=== PATIENT | female | born 1985 | race Caucasian/White ===

== ENCOUNTER → 2017-08-24 16:15 | Outpatient (CLI) | payer OTHER, SELFPAY ==
[2017-08-24 17:28] LABS: Absolute Lymphocyte Count 3.09 X10^3/ul (0.83-4.51); Absolute Neutrophil Count 3.7 X10^3/uL (2.0-7.7); Basophil# 0.06 X10^3/uL; Basophil% 0.8 % (0-1); Eosinophils% 3.9 % (0-5); Hematocrit 35.1 % (37-47); Hemoglobin 11.3 g/dl (12.0-15.0); Lymphocyte # 3.09 X10^3/ul (4.0); Lymphocyte % 39.7 % (19-41); Mean Corp Hgb Conc 32.2 g/gl (32-36); Mean Corpuscular Hgb 20.9 pg (27.0-32.0); Mean Corpuscular Volume 64.9 fL (81-99); Mean Platelet Vol. 11.3 fl (6.2-12.0); Monocyte# 0.64 X10^3/uL; Monocyte% 8.2 % (0-10); Neutrophil # 3.69 X10^3/uL (2.7-7.7); Neutrophil % 47.3 % (47-70); Platelet Count 256 K/mm3 (150-450); RBC Distribution Width CV 14.8 % (11.6-14.6); RBC Distribution Width SD 34.4 fl (35.1-43.9); Red Blood Count 5.41 M/mm3 (4.2-5.4); White Blood Count 7.8 K/mm3 (4.4-11.0)
[2017-08-24 17:29] LABS: Differential Indicated SCAN CRITERIA MET; POSITIVE COUNT NO; POSITIVE DIFFERENTIAL NO; POSITIVE MORPHOLOGY YES
[2017-08-24 17:32] LABS: ALB/GLOB Ratio 1.1 RATIO (0.9-2.4); AST(SGOT) 15 U/L (15-37); Alanine Aminotransfer ALT/SGPT 16 U/L (13-56); Albumin, Serum 3.8 g/dL (3.2-5.0); Alkaline Phosphatase 53 U/L (45-117); Anion Gap 7 (5-15); BUN 12 mg/dL (7-18); Calcium,Total 8.7 mg/dL (8.5-10.1); Chloride 107 mmol/L (98-107); Creatinine, Serum 0.86 mg/dL (0.55-1.02); EST Glomerular Filtration Rate 83 mL/min (>60); Est Glom Filt Rate - Afr Amer 100 mL/min (>60); Globulin 3.5 g/dL (2.2-4.2); Glucose 78 mg/dL (74-106); Potassium 3.7 mmol/L (3.5-5.1); Protein, Total 7.3 g/dL (6.4-8.2); Sodium Level 140 mmol/L (136-145)
== END ==
PROVIDERS: Family Provider Physician Assistant; PCP Physician Assistant; Visit Provider Internal Medicine Rheumatology
DX: M06.4 Inflammatory polyarthropathy (principal); M35.1 Other overlap syndromes; K21.9 Gastro-esophageal reflux disease without esophagitis; M21.40 Flat foot [pes planus] (acquired), unspecified foot; J38.3 Other diseases of vocal cords; G43.909 Migraine, unspecified, not intractable, without status migrainosus
CPT/HCPCS: 36415; 80053; 85025

== ENCOUNTER 2017-09-04 15:44 | Emergency (ER) | payer OTHER, SELFPAY ==
[2017-09-04 15:45] VITALS: BP 132/72; PULSE 96; RESP 16; TEMP 36.9; O2SAT 99; BMI 27.7
[2017-09-04 16:32] LABS: Anion Gap 8 (5-15); BUN 11 mg/dL (7-18); BUN/Creat Ratio 11.5 RATIO (10-20); Calcium,Total 8.8 mg/dL (8.5-10.1); Chloride 106 mmol/L (98-107); Creatinine, Serum 0.96 mg/dL (0.55-1.02); EST Glomerular Filtration Rate 73 mL/min (>60); Est Glom Filt Rate - Afr Amer 88 mL/min (>60); Estimated Creatinine Clearance 68.39 ml/min; Glucose 103 mg/dL (74-106); Potassium 3.6 mmol/L (3.5-5.1); Sodium Level 140 mmol/L (136-145)
--- NOTE | 2017-09-04 16:59 | ED.VISSUMM ---
- ER Visit Summary Date of Service: 09/04/17 Chief Complaint: Abdominal pain History of Present Illness: The patient is a 31 F who presents with upper abdominal pain that began approximately 3 hours prior to arrival. Patient states the pain began suddenly. Patient states the pain is over the epigastric area. Patient states this again approximately 2 hours after eating. Patient denies any radiation of the pain. Patient describes her pain as sharp and squeezing. Patient admits to some nausea but denies any vomiting. Patient did have an episode of loose diarrhea. Patient denies any dysuria or hematuria. Patient states her last menstrual period was 2 weeks ago and was normal. Patient denies any back pain. Physical Examination: Vital signs are stable. Patient is afebrile. Patient is in no acute distress. Oral mucosa is pink and moist. Heart was regular rate and rhythm. Lungs are clear and equal bilaterally. Abdomen is soft. Bowel sounds are normal. There is tenderness of the epigastric and right upper quadrant areas. There is also some mild tenderness of the left upper and left lower quadrants. There is no rebound or guarding noted. Cranial nerves II through XII are intact. There are no focal motor or sensory deficits noted. The remaining physical exam is within normal limits. Test Results: CBC, comprehensive metabolic profile, urinalysis were within normal limits. Emergency Department Course and Treatment: Patient states her pain had resolved on reevaluation. Patient was advised that this could be related to her gallbladder, gastritis, or related to her celiac disease. Patient was instructed to eat low-fat diet. Patient was instructed to follow-up with her primary care physician in 5-7 days. Patient understood and was agreeable with the plan. All questions were answered. Disposition: Discharge home Impression: Right upper quadrant abdominal pain This note was generated with [employer] dictation software. It may contain incorrect words, spelling, and punctuation that were not noted in review of the chart prior to signing ED Disposition - Plan for ED Patient: Disposition: Home or Assisted Living Chief Complaint: Abd Pain Diagnosis: Right upper quadrant abdominal pain of unknown etiology Instructions: ED Abdominal Pain Gallstone Poss Referrals: Samir Cramer DO [Primary Care Provider] -
[2017-09-04 17:00] LABS: Absolute Lymphocyte Count 1.65 X10^3/ul (0.83-4.51); Absolute Neutrophil Count 6.5 X10^3/uL (2.0-7.7); Basophil# 0.06 X10^3/uL; Basophil% 0.7 % (0-1); Eosinophil# 0.12 X10^3/uL; Eosinophils% 1.3 % (0-5); Hematocrit 36.3 % (37-47); Hemoglobin 11.6 g/dl (12.0-15.0); Lymphocyte # 1.65 X10^3/ul (4.0); Lymphocyte % 18.5 % (19-41); Mean Corpuscular Hgb 20.6 pg (27.0-32.0); Mean Corpuscular Volume 64.6 fL (81-99); Monocyte# 0.57 X10^3/uL; Monocyte% 6.4 % (0-10); Neutrophil # 6.48 X10^3/uL (2.7-7.7); Neutrophil % 72.9 % (47-70); Platelet Count 233 K/mm3 (150-450); RBC Distribution Width CV 14.5 % (11.6-14.6); RBC Distribution Width SD 33.4 fl (35.1-43.9); Red Blood Count 5.62 M/mm3 (4.2-5.4); White Blood Count 8.9 K/mm3 (4.4-11.0)
[2017-09-04 17:13] LABS: Differential Indicated SCAN CRITERIA MET; POSITIVE COUNT NO; POSITIVE DIFFERENTIAL NO; POSITIVE MORPHOLOGY YES
[2017-09-04 17:22] LABS: Mucous, Urine 0 SEEN /hpf (<or=2+); Red Blood Cells-Urine 0 SEEN /hpf (0-5)
[2017-09-04 17:29] LABS: Pregnancy, Serum, hCG Quali. NEGATIVE Negative (0-9 Nonpreg)
[2017-09-04 17:35] LABS: Color, Urine Yellow (Yellow); Glucose, Dipstick Normal (Normal); Ketone-Dipstick Negative (Negative); Leukocyte Esterase-Dipstick 100 /ul (Negative); Nitrite-Dipstick Negative (Negative); Occult Blood-Urine Negative /ul (Negative); Protein-Dipstick Negative (Negative); Urine Bilirubin Dipstick Negative (Negative); Urine Clarity Sl. Cloudy (Clear); Urine Urobilinogen Normal (Normal)
[2017-09-04 17:36] LABS: AST(SGOT) 13 U/L (15-37); Alanine Aminotransfer ALT/SGPT 15 U/L (13-56); Albumin, Serum 4.1 g/dL (3.2-5.0); Alkaline Phosphatase 54 U/L (45-117); Bilirubin, Direct 0.16 mg/dL (0.00-0.30); Globulin 3.4 g/dL (2.2-4.2); Lipase 186 U/L (73-393); Protein, Total 7.5 g/dL (6.4-8.2)
[2017-09-04 17:43] LABS: Squamous Epithelial Cells - UA 0-5 SEEN /hpf (5-10); White Blood Cells 0-5 SEEN /hpf (0-5)
[2017-09-04 17:44] LABS: Bacteria RARE /hpf (None Seen)
[2017-09-04 18:00] VITALS: BP 114/73; PULSE 90; RESP 16; O2SAT 99
[2017-09-04 20:07] LABS: Platelet Estimate ADEQUATE (ADEQ)
[2017-09-04 20:08] LABS: Differential Comment SCANNED; Hypochromasia 1+; Microcytosis 2+; Ovalocyte 1+; Platelet Morphology LARGE; Schistocytes RARE; Tear Drop Cell RARE
[2017-09-04 20:42] VITALS: BP 118/78; PULSE 83; RESP 16; O2SAT 100
== END 2017-09-04 20:44 | disposition home or self-care (01) ==
PROVIDERS: Emergency Provider Emergency Medicine; Family Provider Preventive Medicine Occupational Medicine; PCP Preventive Medicine Occupational Medicine
DX: R10.11 Right upper quadrant pain (principal); R10.13 Epigastric pain
CPT/HCPCS: 80048; 80076; 81001; 83690; 84703; 85025; 99284; A4216

== ENCOUNTER → 2017-10-07 10:46 | Outpatient (CLI) | payer OTHER, SELFPAY ==
[2017-10-07 11:29] LABS: hCG Titer Quant., Serum < 1 mIU/mL (<9 non-preg)
== END ==
PROVIDERS: Visit Provider Obstetrics & Gynecology
DX: Z32.00 Encounter for pregnancy test, result unknown (principal)
CPT/HCPCS: 36415; 84702

== ENCOUNTER → 2017-10-12 18:01 | Outpatient (CLI) | payer OTHER, SELFPAY | PROVIDERS: Family Provider Preventive Medicine Occupational Medicine; PCP Preventive Medicine Occupational Medicine; Visit Provider Obstetrics & Gynecology | DX: R30.0 Dysuria (principal) | CPT/HCPCS: 87086; 87088 ==

== ENCOUNTER → 2017-10-22 15:47 | Outpatient (CLI) | payer OTHER, SELFPAY | PROVIDERS: Visit Provider Obstetrics & Gynecology | DX: R30.0 Dysuria (principal) | CPT/HCPCS: 87077; 87086; 87088; 87186 ==

== ENCOUNTER → 2018-02-18 16:29 | Outpatient (CLI) | payer OTHER, SELFPAY ==
[2018-02-18 17:11] LABS: Color, Urine Yellow (Yellow); Glucose, Dipstick Normal (Normal); Ketone-Dipstick Negative (Negative); Leukocyte Esterase-Dipstick 100 /ul (Negative); Nitrite-Dipstick Negative (Negative); Occult Blood-Urine Negative /ul (Negative); Protein-Dipstick Negative (Negative); Specific Gravity, Urine 1.015 (1.002-1.030); Urine Bilirubin Dipstick Negative (Negative); Urine Clarity Clear (Clear); Urine Urobilinogen Normal (Normal)
[2018-02-18 17:37] LABS: Protein, Urine (Random) 6.7 mg/dL (<11.9); Protein:Creat Ratio 95 mg/g CRE (0-200)
[2018-02-18 17:38] LABS: ALB/GLOB Ratio 1.1 RATIO (0.9-2.4); AST(SGOT) 13 U/L (15-37); Alanine Aminotransfer ALT/SGPT 17 U/L (13-56); Albumin, Serum 4.1 g/dL (3.2-5.0); Alkaline Phosphatase 54 U/L (45-117); Anion Gap 6 (5-15); BUN 12 mg/dL (7-18); BUN/Creat Ratio 12.5 RATIO (10-20); Calcium,Total 8.8 mg/dL (8.5-10.1); Chloride 103 mmol/L (98-107); Creatinine, Serum 0.96 mg/dL (0.55-1.02); EST Glomerular Filtration Rate 72 mL/min (>60); Est Glom Filt Rate - Afr Amer 88 mL/min (>60); Globulin 3.6 g/dL (2.2-4.2); Glucose 87 mg/dL (74-106); Potassium 3.6 mmol/L (3.5-5.1); Protein, Total 7.7 g/dL (6.4-8.2); Sodium Level 136 mmol/L (136-145)
[2018-02-18 17:49] LABS: Absolute Lymphocyte Count 3.06 X10^3/ul (0.83-4.51); Absolute Neutrophil Count 3.4 X10^3/uL (2.0-7.7); Basophil# 0.07 X10^3/uL; Eosinophil# 0.32 X10^3/uL; Eosinophils% 4.4 % (0-5); Hemoglobin 11.4 g/dl (12.0-15.0); Lymphocyte # 3.06 X10^3/ul (4.0); Lymphocyte % 41.7 % (19-41); Mean Corp Hgb Conc 31.7 g/gl (32-36); Mean Corpuscular Hgb 20.6 pg (27.0-32.0); Mean Corpuscular Volume 65.1 fL (81-99); Mean Platelet Vol. 11.3 fl (6.2-12.0); Monocyte# 0.51 X10^3/uL; Monocyte% 6.9 % (0-10); Neutrophil # 3.37 X10^3/uL (2.7-7.7); Neutrophil % 45.9 % (47-70); Platelet Count 270 K/mm3 (150-450); RBC Distribution Width CV 14.6 % (11.6-14.6); Red Blood Count 5.53 M/mm3 (4.2-5.4); White Blood Count 7.3 K/mm3 (4.4-11.0)
[2018-02-18 17:54] LABS: Differential Indicated SCAN CRITERIA MET; POSITIVE COUNT NO; POSITIVE DIFFERENTIAL NO; POSITIVE MORPHOLOGY YES
[2018-02-18 18:10] LABS: Anisocytosis 1+; Microcytosis 1+; Platelet Estimate ADEQUATE (ADEQ); Platelet Morphology LARGE
== END ==
PROVIDERS: Family Provider Preventive Medicine Occupational Medicine; PCP Preventive Medicine Occupational Medicine; Referring Provider Internal Medicine Rheumatology; Visit Provider Internal Medicine Rheumatology
DX: M06.4 Inflammatory polyarthropathy (principal); M35.1 Other overlap syndromes; K21.9 Gastro-esophageal reflux disease without esophagitis; M21.40 Flat foot [pes planus] (acquired), unspecified foot; J38.3 Other diseases of vocal cords; G43.909 Migraine, unspecified, not intractable, without status migrainosus
CPT/HCPCS: 36415; 80053; 81002; 82570; 84156; 85025

== ENCOUNTER → 2018-08-30 | Outpatient (CLI) | payer OTHER, SELFPAY ==
[2018-08-30 09:47] LABS: Absolute Neutrophil Count 3.1 X10^3/uL (2.0-7.7); Basophil# 0.09 X10^3/uL; Basophil% 1.6 % (0-1); Eosinophil# 0.19 X10^3/uL; Eosinophils% 3.4 % (0-5); Hematocrit 35.8 % (37-47); Hemoglobin 11.5 g/dl (12.0-15.0); Lymphocyte % 32.1 % (19-41); Mean Corp Hgb Conc 32.1 g/gl (32-36); Mean Corpuscular Hgb 20.4 pg (27.0-32.0); Mean Corpuscular Volume 63.5 fL (81-99); Mean Platelet Vol. 12.1 fl (6.2-12.0); Monocyte# 0.43 X10^3/uL; Monocyte% 7.7 % (0-10); Neutrophil # 3.09 X10^3/uL (2.7-7.7); Neutrophil % 55.2 % (47-70); Platelet Count 250 K/mm3 (150-450); RBC Distribution Width CV 15.2 % (11.6-14.6); RBC Distribution Width SD 34.3 fl (35.1-43.9); Red Blood Count 5.64 M/mm3 (4.2-5.4); White Blood Count 5.6 K/mm3 (4.4-11.0)
[2018-08-30 09:56] LABS: POSITIVE COUNT NO; POSITIVE DIFFERENTIAL NO
[2018-08-30 10:12] LABS: ALB/GLOB Ratio 1.3 RATIO (0.9-2.4); AST(SGOT) 18 U/L (15-37); Alanine Aminotransfer ALT/SGPT 20 U/L (13-56); Albumin, Serum 4.1 g/dL (3.2-5.0); Alkaline Phosphatase 41 U/L (45-117); Anion Gap 6 (5-15); BUN 15 mg/dL (7-18); Calcium,Total 8.9 mg/dL (8.5-10.1); Chloride 106 mmol/L (98-107); EST Glomerular Filtration Rate 69 mL/min (>60); Est Glom Filt Rate - Afr Amer 83 mL/min (>60); Globulin 3.2 g/dL (2.2-4.2); Glucose 101 mg/dL (74-106); Protein, Total 7.3 g/dL (6.4-8.2); Sodium Level 139 mmol/L (136-145)
== END | disposition home or self-care (01) ==
LOC: LAB 08:10
PROVIDERS: Family Provider Family Medicine; PCP Family Medicine; Referring Provider Internal Medicine Rheumatology; Visit Provider Internal Medicine Rheumatology
DX: M06.4 Inflammatory polyarthropathy (principal); M35.1 Other overlap syndromes; K21.9 Gastro-esophageal reflux disease without esophagitis; M21.40 Flat foot [pes planus] (acquired), unspecified foot; J38.3 Other diseases of vocal cords; G43.909 Migraine, unspecified, not intractable, without status migrainosus
CPT/HCPCS: 36415; 80053; 85025

== ENCOUNTER → 2019-02-21 08:08 | Outpatient (CLI) | payer OTHER, SELFPAY ==
[2019-02-21 08:59] LABS: Absolute Lymphocyte Count 2.31 X10^3/uL (0.83-4.51); Basophil# 0.06 X10^3/uL; Basophil% 0.6 % (0-1); Eosinophil# 0.23 X10^3/uL; Eosinophils% 2.5 % (0-5); Hematocrit 38.9 % (37-47); Lymphocyte # 2.31 X10^3/ul (4.0); Lymphocyte % 24.7 % (19-41); Mean Corp Hgb Conc 30.8 g/dL (32-36); Mean Corpuscular Hgb 20.8 pg (27.0-32.0); Mean Corpuscular Volume 67.5 fL (81-99); Monocyte# 0.72 X10^3/uL; Monocyte% 7.7 % (0-10); NRBC Flagged by Analyzer 0 % (0-5); Neutrophil % 64.3 % (47-70); Platelet Count 263 K/mm3 (150-450); RBC Distribution Width CV 14.5 % (11.6-14.6); RBC Distribution Width SD 33.4 fl (35.1-43.9); Red Blood Count 5.76 M/mm3 (4.2-5.4); White Blood Count 9.3 K/mm3 (4.4-11.0)
[2019-02-21 09:00] LABS: Color, Urine Yellow (Yellow); Glucose, Dipstick Normal (Normal); Ketone-Dipstick Negative (Negative); Leukocyte Esterase-Dipstick 100 /ul (Negative); Nitrite-Dipstick Negative (Negative); Occult Blood-Urine Negative /ul (Negative); Protein-Dipstick 30 mg/dl (Negative); Urine Bilirubin Dipstick Negative (Negative); Urine Clarity Sl. Cloudy (Clear); Urine Urobilinogen Normal (Normal); Urine pH 6.5 (5.0 - 8.0)
[2019-02-21 09:16] LABS: Protein, Urine (Random) 42.1 mg/dL (<11.9); Protein:Creat Ratio 567 mg/g CRE (0-200)
[2019-02-21 09:34] LABS: ALB/GLOB Ratio 1.1 RATIO (0.9-2.4); AST(SGOT) 15 U/L (15-37); Alanine Aminotransfer ALT/SGPT 19 U/L (13-56); Albumin, Serum 3.9 g/dL (3.2-5.0); Alkaline Phosphatase 46 U/L (45-117); Anion Gap 6 (5-15); BUN 18 mg/dL (7-18); Calcium,Total 9.1 mg/dL (8.5-10.1); Chloride 108 mmol/L (98-107); Creatinine, Serum 0.95 mg/dL (0.55-1.02); EST Glomerular Filtration Rate 73 mL/min (>60); Est Glom Filt Rate - Afr Amer 88 mL/min (>60); Globulin 3.4 g/dL (2.2-4.2); Glucose 89 mg/dL (74-106); Potassium 3.9 mmol/L (3.5-5.1); Protein, Total 7.3 g/dL (6.4-8.2); Sodium Level 140 mmol/L (136-145)
== END ==
PROVIDERS: Family Provider Family Medicine; PCP Family Medicine; Referring Provider Internal Medicine Rheumatology; Visit Provider Internal Medicine Rheumatology
DX: M06.4 Inflammatory polyarthropathy (principal); M35.1 Other overlap syndromes; K21.9 Gastro-esophageal reflux disease without esophagitis; M21.40 Flat foot [pes planus] (acquired), unspecified foot; J38.3 Other diseases of vocal cords; G43.909 Migraine, unspecified, not intractable, without status migrainosus
CPT/HCPCS: 36415; 80053; 81002; 82570; 84156; 85025

== ENCOUNTER → 2019-03-16 06:42 | Outpatient (CLI) | payer OTHER, SELFPAY ==
[2019-03-16 08:09] LABS: Absolute Lymphocyte Count 2.81 X10^3/uL (0.83-4.51); Absolute Neutrophil Count 3.6 X10^3/uL (2.0-7.7); Basophil% 1.3 % (0-1); Eosinophil# 0.34 X10^3/uL; Eosinophils% 4.5 % (0-5); Hematocrit 40.3 % (37-47); Hemoglobin 12.2 g/dL (12.0-15.0); Lymphocyte # 2.81 X10^3/ul (4.0); Lymphocyte % 37.5 % (19-41); Mean Corp Hgb Conc 30.3 g/dL (32-36); Mean Corpuscular Hgb 20.4 pg (27.0-32.0); Mean Corpuscular Volume 67.5 fL (81-99); Mean Platelet Vol. 11.8 fl (6.2-12.0); Monocyte# 0.58 X10^3/uL; Monocyte% 7.7 % (0-10); NRBC Flagged by Analyzer 0 % (0-5); Neutrophil # 3.64 X10^3/uL (2.7-7.7); Neutrophil % 48.7 % (47-70); Platelet Count 364 K/mm3 (150-450); RBC Distribution Width SD 32.7 fl (35.1-43.9); Red Blood Count 5.97 M/mm3 (4.2-5.4); White Blood Count 7.5 K/mm3 (4.4-11.0)
[2019-03-16 08:11] LABS: Color, Urine Yellow (Yellow); Glucose, Dipstick Normal (Normal); Ketone-Dipstick Negative (Negative); Leukocyte Esterase-Dipstick 100 /ul (Negative); Nitrite-Dipstick Negative (Negative); Occult Blood-Urine Negative /ul (Negative); Protein-Dipstick 15 mg/dl (Negative); Urine Bilirubin Dipstick Negative (Negative); Urine Clarity Sl. Cloudy (Clear); Urine Urobilinogen Normal (Normal); Urine pH 6.5 (5.0 - 8.0)
[2019-03-16 08:25] LABS: Protein, Urine (Random) 41.1 mg/dL (<11.9); Protein:Creat Ratio 152 mg/g CRE (0-200)
[2019-03-16 08:42] LABS: ALB/GLOB Ratio 1.1 RATIO (0.9-2.4); AST(SGOT) 15 U/L (15-37); Alanine Aminotransfer ALT/SGPT 16 U/L (13-56); Albumin, Serum 4.1 g/dL (3.2-5.0); Alkaline Phosphatase 56 U/L (45-117); Anion Gap 6 (5-15); BUN 12 mg/dL (7-18); BUN/Creat Ratio 12.1 RATIO (10-20); Calcium,Total 9.2 mg/dL (8.5-10.1); Chloride 105 mmol/L (98-107); EST Glomerular Filtration Rate 69 mL/min (>60); Est Glom Filt Rate - Afr Amer 84 mL/min (>60); Globulin 3.6 g/dL (2.2-4.2); Glucose 88 mg/dL (74-106); Potassium 3.8 mmol/L (3.5-5.1); Protein, Total 7.7 g/dL (6.4-8.2); Sodium Level 138 mmol/L (136-145)
== END ==
PROVIDERS: Family Provider Family Medicine; PCP Family Medicine; Referring Provider Internal Medicine Rheumatology; Visit Provider Internal Medicine Rheumatology
DX: M06.4 Inflammatory polyarthropathy (principal); M35.1 Other overlap syndromes; K21.9 Gastro-esophageal reflux disease without esophagitis; M21.40 Flat foot [pes planus] (acquired), unspecified foot; J38.3 Other diseases of vocal cords; G43.909 Migraine, unspecified, not intractable, without status migrainosus
CPT/HCPCS: 36415; 80053; 81002; 82570; 84156; 85025

== ENCOUNTER → 2019-05-10 10:04 | Outpatient (CLI) | payer OTHER, SELFPAY ==
[2019-05-10 13:58] LABS: Vitamin D,25 Hydroxy 59.2 ng/mL (29.95-100.01)
[2019-05-10 14:02] LABS: Ferritin 106 ng/mL (8-252); Iron Binding Capacity,Total 273 ug/dL (250-450)
== END ==
PROVIDERS: Visit Provider Obstetrics & Gynecology
DX: E55.9 Vitamin D deficiency, unspecified (principal); D50.9 Iron deficiency anemia, unspecified
CPT/HCPCS: 36415; 82306; 82728; 83550

== ENCOUNTER → 2019-08-17 07:06 | Outpatient (CLI) | payer OTHER, SELFPAY ==
[2019-08-17 08:30] LABS: Absolute Neutrophil Count 3.3 X10^3/uL (2.0-7.7); Basophil% 1.4 % (0-1); Eosinophil# 0.45 X10^3/uL; Eosinophils% 6.4 % (0-5); Hematocrit 38.3 % (37-47); Lymphocyte % 35.4 % (19-41); Mean Corp Hgb Conc 31.3 g/dL (32-36); Mean Corpuscular Hgb 20.8 pg (27.0-32.0); Mean Corpuscular Volume 66.3 fL (81-99); Monocyte# 0.75 X10^3/uL; Monocyte% 10.6 % (0-10); NRBC Flagged by Analyzer 0 % (0-5); Neutrophil # 3.25 X10^3/uL (2.7-7.7); Neutrophil % 45.9 % (47-70); Platelet Count 263 K/mm3 (150-450); RBC Distribution Width CV 15.3 % (11.6-14.6); RBC Distribution Width SD 34.4 fl (35.1-43.9); Red Blood Count 5.78 M/mm3 (4.2-5.4); White Blood Count 7.1 K/mm3 (4.4-11.0)
[2019-08-17 08:52] LABS: ALB/GLOB Ratio 1.2 RATIO (0.9-2.4); AST(SGOT) 17 U/L (15-37); Alanine Aminotransfer ALT/SGPT 20 U/L (13-56); Albumin, Serum 4.3 g/dL (3.2-5.0); Alkaline Phosphatase 57 U/L (45-117); Anion Gap 8 (5-15); BUN 14 mg/dL (7-18); BUN/Creat Ratio 15.2 RATIO (10-20); Chloride 105 mmol/L (98-107); Creatinine, Serum 0.92 mg/dL (0.55-1.02); EST Glomerular Filtration Rate 75 mL/min (>60); Est Glom Filt Rate - Afr Amer 91 mL/min (>60); Globulin 3.6 g/dL (2.2-4.2); Glucose 84 mg/dL (74-106); Protein, Total 7.9 g/dL (6.4-8.2); Sodium Level 139 mmol/L (136-145)
== END ==
PROVIDERS: PCP Family Medicine; Referring Provider Internal Medicine Rheumatology; Visit Provider Internal Medicine Rheumatology
DX: M06.4 Inflammatory polyarthropathy (principal); M35.1 Other overlap syndromes; K21.9 Gastro-esophageal reflux disease without esophagitis; M21.40 Flat foot [pes planus] (acquired), unspecified foot; J38.3 Other diseases of vocal cords; G43.909 Migraine, unspecified, not intractable, without status migrainosus
CPT/HCPCS: 36415; 80053; 85025

== ENCOUNTER → 2019-08-18 07:13 | Outpatient (CLI) | payer OTHER, SELFPAY ==
[2019-08-18 07:38] LABS: Color, Urine Yellow (Yellow); Glucose, Dipstick Normal (Normal); Ketone-Dipstick 5 mg/dl (Negative); Leukocyte Esterase-Dipstick 500 /ul (Negative); Nitrite-Dipstick Negative (Negative); Occult Blood-Urine 10 /ul (Negative); Protein-Dipstick 15 mg/dl (Negative); Specific Gravity, Urine 1.025 (1.002-1.030); Urine Bilirubin Dipstick Negative (Negative); Urine Clarity Sl. Cloudy (Clear); Urine Urobilinogen 1 mg/dl (Normal)
[2019-08-18 07:53] LABS: Protein, Urine (Random) 59.2 mg/dL (<11.9); Protein:Creat Ratio 201 mg/g CRE (0-200)
== END ==
PROVIDERS: PCP Family Medicine; Referring Provider Internal Medicine Rheumatology; Visit Provider Internal Medicine Rheumatology
DX: M06.4 Inflammatory polyarthropathy (principal); M35.1 Other overlap syndromes; K21.9 Gastro-esophageal reflux disease without esophagitis; M21.40 Flat foot [pes planus] (acquired), unspecified foot; J38.3 Other diseases of vocal cords; G43.909 Migraine, unspecified, not intractable, without status migrainosus
CPT/HCPCS: 81002; 82570; 84156

== ENCOUNTER → 2020-01-04 16:17 | Outpatient (CLI) | payer OTHER, SELFPAY ==
[2020-01-04 18:12] LABS: hCG Titer Quant., Serum 572 mIU/mL (1-3)
== END ==
PROVIDERS: PCP Family Medicine; Visit Provider Obstetrics & Gynecology
DX: Z32.01 Encounter for pregnancy test, result positive (principal); N92.6 Irregular menstruation, unspecified
CPT/HCPCS: 36415; 84702

== ENCOUNTER → 2020-01-31 11:29 | Outpatient (CLI) | payer OTHER, SELFPAY ==
[2020-01-31 11:57] LABS: Absolute Lymphocyte Count 1.64 X10^3/uL (0.83-4.51); Absolute Neutrophil Count 4.9 X10^3/uL (2.0-7.7); Basophil# 0.07 X10^3/uL; Basophil% 0.9 % (0-1); Eosinophil# 0.13 X10^3/uL; Eosinophils% 1.8 % (0-5); Hematocrit 31.9 % (37-47); Lymphocyte # 1.64 X10^3/ul (4.0); Lymphocyte % 22.2 % (19-41); Mean Corp Hgb Conc 31.3 g/dL (32-36); Mean Corpuscular Hgb 21.2 pg (27.0-32.0); Mean Corpuscular Volume 67.6 fL (81-99); Mean Platelet Vol. 11.3 fl (6.2-12.0); Monocyte# 0.59 X10^3/uL; NRBC Flagged by Analyzer 0 % (0-5); Neutrophil # 4.94 X10^3/uL (2.7-7.7); Neutrophil % 66.8 % (47-70); Platelet Count 267 K/mm3 (150-450); RBC Distribution Width CV 15.2 % (11.6-14.6); RBC Distribution Width SD 35.7 fl (35.1-43.9); Red Blood Count 4.72 M/mm3 (4.2-5.4); White Blood Count 7.4 K/mm3 (4.4-11.0)
[2020-01-31 12:02] LABS: Color, Urine Straw (Yellow); Glucose, Dipstick Normal (Normal); Ketone-Dipstick Negative (Negative); Leukocyte Esterase-Dipstick 500 /ul (Negative); Nitrite-Dipstick Negative (Negative); Occult Blood-Urine 50 /ul (Negative); Protein-Dipstick 15 mg/dl (Negative); Urine Bilirubin Dipstick Negative (Negative); Urine Clarity Clear (Clear); Urine Urobilinogen Normal (Normal)
[2020-01-31 12:12] LABS: Amphetamine Urine VISTA NEGATIVE (<1000 ng/mL); Barbiturate Urine VISTA NEGATIVE (< 200 ng/mL); Benzodiazepine Urine VISTA NEGATIVE (< 200 ng/mL); Cocaine Urine VISTA NEGATIVE (< 300 ng/mL); Ecstacy Urine VISTA NEGATIVE (< 500 ng/mL); Methadone Urine VISTA NEGATIVE (< 300 ng/mL); PCP Urine VISTA NEGATIVE (< 25 ng/mL); THC Urine VISTA NEGATIVE (< 50 ng/mL); Vista UDS pH Range 7
[2020-01-31 12:34] LABS: ALB/GLOB Ratio 1.3 RATIO (0.9-2.4); AST(SGOT) 16 U/L (15-37); Alanine Aminotransfer ALT/SGPT 19 U/L (13-56); Albumin, Serum 4.3 g/dL (3.2-5.0); Alkaline Phosphatase 65 U/L (45-117); Anion Gap 6 (5-15); BUN 8 mg/dL (7-18); BUN/Creat Ratio 13.1 RATIO (10-20); Calcium,Total 8.6 mg/dL (8.5-10.1); Chloride 105 mmol/L (98-107); Creatinine, Serum 0.61 mg/dL (0.55-1.02); EST Glomerular Filtration Rate 121 mL/min (>60); Est Glom Filt Rate - Afr Amer 146 mL/min (>60); Ferritin 90 ng/mL (8-252); Globulin 3.4 g/dL (2.2-4.2); Glucose 78 mg/dL (74-106); Potassium 3.5 mmol/L (3.5-5.1); Protein, Total 7.7 g/dL (6.4-8.2); Sodium Level 137 mmol/L (136-145); Thyroid Stim Hormone (TSH) 1.78 uIU/mL (0.358-3.74)
[2020-01-31 13:33] LABS: HIV - WCH Non-Reactive (Nonreactive); Hepatitis B Surface Antigen Non-Reactive (Nonreactive); Hepatitis C Antibody Non-Reactive (Nonreactive); Vitamin B12 549 pg/mL (211-911); Vitamin D,25 Hydroxy 37.2 ng/mL
[2020-02-02 01:33] LABS: Prenatal RPR NONREACTIVE (NONREACTIVE)
[2020-02-02 05:07] LABS: Chlamydia By Nucleic Acid AMP Negative (Negative)
[2020-02-02 05:39] LABS: Gonococcus By Nucleic Acid AMP Negative (Negative)
[2020-02-02 09:38] LABS: Iron 134 ug/dL (50-170); Iron Binding Capacity,Total 231 ug/dL (250-450)
[2020-02-03 16:08] LABS: Hemoglobin Fraction A 94.3 % (96.4-98.8); Hemoglobin Fraction A2 4.7 % (1.8-3.2); Hemoglobin Fraction C 0 % (0.0); Hemoglobin Fraction S 0 % (0.0); Hemoglobin Solubility,Panel Negative (Negative)
== END ==
PROVIDERS: PCP Family Medicine; Visit Provider Obstetrics & Gynecology
DX: Z34.81 Encounter for supervision of other normal pregnancy, first trimester (principal)
CPT/HCPCS: 80053; 80307; 81002; 82306; 82607; 82728; 83021; 83090; 83540; 83550; 83921; 84443; 85025; 85660; 86703; 86762; 86803; 87086; 87340; 87491; 87591

== ENCOUNTER → 2020-06-22 09:41 | Outpatient (CLI) | payer OTHER, SELFPAY ==
[2020-06-22 11:51] LABS: Hemoglobin 10.1 g/dL (12.0-15.0); Mean Corp Hgb Conc 31.6 g/dL (32-36); Mean Corpuscular Hgb 21.9 pg (27.0-32.0); Mean Corpuscular Volume 69.3 fL (81-99); Mean Platelet Vol. 11.6 fl (6.2-12.0); Platelet Count 247 K/mm3 (150-450); RBC Distribution Width SD 35.7 fl (35.1-43.9); Red Blood Count 4.62 M/mm3 (4.2-5.4); White Blood Count 13.4 K/mm3 (4.4-11.0)
[2020-06-22 11:58] LABS: Glucose Challenge Gest 1H 50g 113 mg/dL (70-140)
[2020-06-26 14:59] LABS: Ferritin 11 ng/mL (8-252)
== END ==
PROVIDERS: PCP Family Medicine; Visit Provider Obstetrics & Gynecology
DX: Z34.83 Encounter for supervision of other normal pregnancy, third trimester (principal)
CPT/HCPCS: 36415; 82728; 82950; 85027

== ENCOUNTER → 2020-08-14 15:43 | Outpatient (CLI) | payer OTHER, SELFPAY ==
[2020-08-14 16:16] LABS: Mucous, Urine 0 SEEN /hpf (<or=2+); Red Blood Cells-Urine 0 SEEN /hpf (0-5)
[2020-08-14 17:28] LABS: Absolute Lymphocyte Count 2.16 X10^3/uL (0.83-4.51); Absolute Neutrophil Count 8.8 X10^3/uL (2.0-7.7); Basophil# 0.08 X10^3/uL; Basophil% 0.6 % (0-1); Eosinophil# 0.26 X10^3/uL; Eosinophils% 2.1 % (0-5); Hematocrit 33.3 % (37-47); Hemoglobin 10.6 g/dL (12.0-15.0); Lymphocyte # 2.16 X10^3/ul (4.0); Lymphocyte % 17.1 % (19-41); Mean Corp Hgb Conc 31.8 g/dL (32-36); Mean Corpuscular Hgb 21.8 pg (27.0-32.0); Mean Corpuscular Volume 68.5 fL (81-99); Mean Platelet Vol. 11.1 fl (6.2-12.0); Monocyte# 1.13 X10^3/uL; Monocyte% 8.9 % (0-10); NRBC Flagged by Analyzer 0 % (0-5); Neutrophil # 8.78 X10^3/uL (2.7-7.7); Neutrophil % 69.5 % (47-70); Platelet Count 238 K/mm3 (150-450); RBC Distribution Width CV 14.9 % (11.6-14.6); RBC Distribution Width SD 35.8 fl (35.1-43.9); Red Blood Count 4.86 M/mm3 (4.2-5.4); White Blood Count 12.6 K/mm3 (4.4-11.0)
[2020-08-14 17:41] LABS: ALB/GLOB Ratio 0.9 RATIO (0.9-2.4); AST(SGOT) 18 U/L (15-37); Alanine Aminotransfer ALT/SGPT 27 U/L (13-56); Albumin, Serum 3.2 g/dL (3.2-5.0); Alkaline Phosphatase 118 U/L (45-117); BUN 8 mg/dL (7-18); Calcium,Total 8.9 mg/dL (8.5-10.1); Chloride 106 mmol/L (98-107); Creatinine, Serum 0.66 mg/dL (0.55-1.02); EST Glomerular Filtration Rate 109 mL/min (>60); Est Glom Filt Rate - Afr Amer 132 mL/min (>60); Globulin 3.5 g/dL (2.2-4.2); Glucose 93 mg/dL (74-106); Potassium 3.8 mmol/L (3.5-5.1); Protein, Total 6.7 g/dL (6.4-8.2); Sodium Level 138 mmol/L (136-145)
[2020-08-14 17:42] LABS: Anion Gap 9 (5-15)
[2020-08-14 17:48] LABS: Color, Urine Yellow (Yellow); Glucose, Dipstick Normal (Normal); Ketone-Dipstick Negative (Negative); Leukocyte Esterase-Dipstick 500 /ul (Negative); Nitrite-Dipstick Negative (Negative); Occult Blood-Urine 10 /ul (Negative); Protein-Dipstick 15 mg/dl (Negative); Urine Bilirubin Dipstick Negative (Negative); Urine Clarity Sl. Cloudy (Clear); Urine Urobilinogen Normal (Normal)
[2020-08-14 17:55] LABS: Protein:Creat Ratio 353 mg/g CRE (0-200)
[2020-08-14 18:00] LABS: White Blood Cells 10-25 SEEN /hpf (0-5)
[2020-08-14 18:01] LABS: Bacteria RARE /hpf (None Seen); Squamous Epithelial Cells - UA 5-10 SEEN /hpf (5-10)
[2020-08-16 14:11] LABS: Complement C3 111 mg/dL (82-167)
[2020-08-17 05:17] LABS: Anti-dsDNA Ab <1 IU/mL (0-9)
== END ==
PROVIDERS: PCP Family Medicine; Visit Provider Internal Medicine Rheumatology
DX: M06.4 Inflammatory polyarthropathy (principal); K21.9 Gastro-esophageal reflux disease without esophagitis; M21.40 Flat foot [pes planus] (acquired), unspecified foot; J38.3 Other diseases of vocal cords; G43.909 Migraine, unspecified, not intractable, without status migrainosus
CPT/HCPCS: 36415; 80053; 81001; 82570; 84156; 85025; 86160; 86225; 87081

== ENCOUNTER → 2020-09-10 17:00 | Outpatient (CLI) | payer OTHER, SELFPAY | PROVIDERS: PCP Family Medicine; Visit Provider Student in an Organized Health Care Education/Training Program | DX: Z36.85 Encounter for antenatal screening for Streptococcus B (principal) | CPT/HCPCS: 87081 ==

== ENCOUNTER 2020-09-12 19:23 | Inpatient (IN) | payer OTHER, SELFPAY ==
[2020-09-12] VITALS (18 sets, daily range): BP systolic 114–142; BP diastolic 69–85; PULSE 96–129; TEMP 37.4–37.6; O2SAT 96–100; BMI 31.2
[2020-09-12] MEDS: Lactated Ringers 1,000 ML 50 ML IV (19:10)
[2020-09-12 19:38] LABS: Absolute Lymphocyte Count 2.54 X10^3/uL (0.83-4.51); Absolute Neutrophil Count 10.8 X10^3/uL (2.0-7.7); Basophil% 0.7 % (0-1); Hematocrit 34.6 % (37-47); Lymphocyte # 2.54 X10^3/ul (0.83-4.51); Lymphocyte % 16.7 % (19-41); Mean Corp Hgb Conc 31.8 g/dL (32-36); Mean Corpuscular Hgb 21.9 pg (27.0-32.0); Mean Corpuscular Volume 68.8 fL (81-99); Mean Platelet Vol. 11.3 fl (6.2-12.0); Monocyte# 1.36 X10^3/uL; Monocyte% 8.9 % (0-10); NRBC Flagged by Analyzer 0 % (0-5); Neutrophil # 10.76 X10^3/uL (2.7-7.7); Neutrophil % 70.7 % (47-70); Platelet Count 246 K/mm3 (150-450); RBC Distribution Width CV 15.2 % (11.6-14.6); RBC Distribution Width SD 35.8 fl (35.1-43.9); Red Blood Count 5.03 M/mm3 (4.2-5.4); White Blood Count 15.2 K/mm3 (4.4-11.0)
--- NOTE | 2020-09-12 20:49 | HP.PCM_ITS ---
History and Physical Date of Admission: 09/12/20 Chief Complaint: Contractions History of present illness: 34yo at 40wk/3d with KEI: 09/09/20 by 8wk u/s arrives with contractions. Denies CP, SOB, N/V, RUQ pain, visual changes. States good movement. Obstetric history: G1: Current Past medical history: Mixed connective tissue disorder Medications: vitamins Past Surgical History: Sellers teeth extraction Allergies: Bactrim Family history: denies a history of DVT or PE Review of systems: Besides the above pertinent positives a full review of systems was performed and found to be negative Physical exam: Vital Signs Temp Pulse BP Pulse Ox 09/13/20 05:54 117 H 117/72 09/13/20 04:46 128 H 124/73 H 98 09/13/20 03:56 97.9 F 125 H 117/68 100 09/13/20 02:58 99.7 F H 126 H 121/73 H 09/13/20 02:57 99 09/13/20 02:22 129 H 98 09/13/20 02:02 121 H 114/69 09/13/20 02:01 98.2 F 99 09/13/20 01:31 122 H 98 09/13/20 00:59 98.2 F 09/13/20 00:55 129 H 128/60 H 09/13/20 00:51 122 H 99 09/13/20 00:46 121 H 100 09/13/20 00:45 109 H 136/70 H 09/13/20 00:41 104 H 98 09/13/20 00:39 87 93/46 L 09/13/20 00:14 118 H 122/74 H 09/13/20 00:12 117 H 98 09/13/20 00:09 120 H 123/69 H 09/13/20 00:07 123 H 98 09/13/20 00:04 114 H 126/77 H 09/13/20 00:02 121 H 98 09/13/20 00:00 123 H 123/82 H 09/12/20 23:57 124 H 99 09/12/20 23:54 120 H 128/77 H 09/12/20 23:52 125 H 99 09/12/20 23:48 123 H 127/76 H 09/12/20 23:46 121 H 98 09/12/20 23:45 123 H 138/77 H 09/12/20 23:41 123 H 98 09/12/20 23:40 110 H 138/77 H 09/12/20 23:36 127 H 100 09/12/20 23:34 129 H 138/81 H 09/12/20 23:31 125 H 98 09/12/20 23:26 110 H 98 09/12/20 23:24 114 H 133/78 H 09/12/20 23:21 113 H 97 09/12/20 23:16 108 H 96 09/12/20 21:56 103 H 114/69 97 09/12/20 20:12 99.3 F H 104 H 142/69 H 98 General: Normal-appearing no acute distress HEENT: Normocephalic atraumatic Cardiac/respiratory: Nonlabored breathing, no use of accessory muscles Abdomen: Soft, nontender, gravid Extremities: No peripheral edema normal peripheral pulses Psych: Normal affect normal demeanor nonpressured speech Mom's Microbiology 09/12/20 20:20 Mucosa - Nose SARS-CoV-2 Antigen (Rapid) - Final Mom's Labs & Results 09/12/20 09/12/20 19:10 19:10 WBC 15.2 H RBC 5.03 Hgb 11.0 L Hct 34.6 L MCV 68.8 L MCH 21.9 L MCHC 31.8 L RDW Std Deviation 35.8 RDW Coeff of Ericka 15.2 H Plt Count 246 MPV 11.3 Immature Gran % (Auto) 1.000 H Neut % (Auto) 70.7 H Lymph % (Auto) 16.7 L [place] % (Auto) 8.9 Eos % (Auto) 2.0 Baso % (Auto) 0.7 Absolute Neuts (auto) 10.8 H Absolute Lymphs (auto) 2.54 Nucleated RBC % 0 Blood Type B POSITIVE Antibody Screen NEGATIVE Labs Blood Type: B RH: POSITIVE RPR/VDRL/Syphilis Nonreactive Rubella status Immune HbSAg Negative Date Done: 01/31/20 Chlamydia Negative Gonorrhea Negative HIV/AIDS Non-Reactive Group B Strep: Negative Assessment and plan: 34yo at 40wk/3d arrives in labor -Admit labor and delivery -CEFM -GBS neg -Augment with pitocin -Routine orders -Anesthesia to see
[2020-09-12] MEDS: Lactated Ringers 500 ML 999 ML IV (22:48)
[2020-09-13] VITALS (44 sets, daily range): BP systolic 93–136; BP diastolic 46–82; PULSE 87–129; RESP 16–18; TEMP 36.6–38.1; O2SAT 98–100
[2020-09-13] MEDS: fentaNYL-bupivacaine (epidural) 100 ML BAG EPIDURAL ×3 (00:05→11:23)
[2020-09-13] MEDS: Lactated Ringers 500 ML 999 ML IV (00:40)
[2020-09-13] MEDS: Acetaminophen 500 MG Tablet PO (03:14)
[2020-09-13] MEDS: Lactated Ringers 1,000 ML 200 ML IV ×3 (03:17→11:22)
[2020-09-13] MEDS: Oxytocin 30 units/NS 500 ml 30 UNITS/500 ML IV.SOLN IV (03:18)
[2020-09-13] MEDS: Mag Hydrox/Al Hydrox/Simeth 30 ML UDC PO (04:01)
[2020-09-13] MEDS: Ondansetron 4 MG/2 ML Vial IV (06:16)
--- NOTE | 2020-09-13 08:33 | PCM.PN.OB ---
Subjective: Patient currently pushing - Physical Exam Vitals/I&O's: Vital Signs Temp Pulse BP Pulse Ox 97.9 F 113 H 127/64 H 98 09/13/20 03:56 09/13/20 08:20 09/13/20 08:20 09/13/20 04:46 Weight: 171 lb Body Mass Index (BMI) 31.2 Intake and Output for Last 24 Hours 09/11/20 09/12/20 09/13/20 23:59 23:59 23:59 Intake Total 680.83 / 680.83 2631.79 / 2631.79 Output Total 1000 / 1000 Balance 680.83 / 680.83 1631.79 / 1631.79 General: Alert, Oriented x3, Cooperative, No apparent distress HEENT: Atraumatic, PERRLA, Normocephalic Oral: Moist Mucosa Neck: Supple Extremities: No clubbing, No cyanosis Neurological: Neuro grossly intact Psych/Mental Status: Normal Affect, Appropriate, Alert and oriented to time, place, person, mood and affect Microbiology Past 72 Hours 09/12/20 20:20 Mucosa - Nose SARS-CoV-2 Antigen (Rapid) - Final Laboratory Results 09/12/20 19:10: WBC 15.2 H, RBC 5.03, Hgb 11.0 L, Hct 34.6 L, MCV 68.8 L, MCH 21.9 L, MCHC 31.8 L, RDW Std Deviation 35.8, RDW Coeff of Ericka 15.2 H, Plt Count 246, MPV 11.3, Immature Gran % (Auto) 1.000 H, Neut % (Auto) 70.7 H, Lymph % (Auto) 16.7 L, [place] % (Auto) 8.9, Eos % (Auto) 2.0, Baso % (Auto) 0.7, Absolute Neuts (auto) 10.8 H, Absolute Lymphs (auto) 2.54, Nucleated RBC % 0 09/12/20 19:10: Blood Type B POSITIVE, Antibody Screen NEGATIVE Current Medications Acetaminophen (Acetaminophen 500 Mg Tablet) 500 - 1,000 mg PO Q6H PRN PRN PRN Reason: Pain Score 1-3 Last Admin: 09/13/20 03:14 Dose: 1,000 mg Documented by: Al Hydroxide/Mg Hydroxide (Mag Hydrox/Al Hydrox/Simeth 30 Ml Udc) 15 - 30 ml PO Q4H PRN PRN PRN Reason: INDIGESTION Last Admin: 09/13/20 04:01 Dose: 30 ml Documented by: Citric Acid/Sodium Citrate (Sodium Citrate/Citric Acid 30 Ml Udc) 30 ml PO X1 PRN PRN Reason: Section Ephedrine Sulfate (Ephedrine Sulfate 50 Mg/Ml Ampul) 10 mg IV Q10M PRN PRN Reason: hypotension Ephedrine Sulfate (Ephedrine Sulfate 50 Mg/Ml Ampul) 10 mg IM Q30M PRN PRN Reason: hypotension Fentanyl Citrate (Fentanyl 100 Mcg/2 Ml Ampul) 25 - 50 mcg IV Q2H PRN PRN PRN Reason: Pain Score 4-10 Fentanyl/Bupivacaine/Sodium Chlor (Fentanyl-Bupivacaine (Epidural) 100 Ml Bag) 0 ml EPIDURAL UD [facility]; Protocol Last Admin: 09/13/20 06:22 Dose: 100 ml Documented by: Lactated Ringer's () 500 mls @ 999 mls/hr IV .Q31M PRN PRN Reason: Epidural Last Infusion: 09/12/20 23:19 Dose: Infused Documented by: Lactated Ringer's () 500 mls @ 999 mls/hr IV .Q31M PRN PRN Reason: Corrective Measures Last Infusion: 09/13/20 01:11 Dose: Infused Documented by: Lactated Ringer's () 1,000 mls @ 50 mls/hr IV .Q20H [facility] Last Admin: 09/13/20 07:57 Dose: 200 mls/hr Documented by: Oxytocin/Sodium Chloride () 30 units in 500 mls @ 2 mls/hr IV .Q250H [facility] Last Infusion: 09/13/20 05:48 Dose: 6 mls/hr Documented by: Nalbuphine HCl (Nalbuphine 10 Mg/Ml Ampul) 5 mg IV Q3H PRN PRN PRN Reason: ITCHING Naloxone HCl (Naloxone 0.4 Mg/Ml Syringe) 0.02 mg IV Q1M PRN PRN Reason: RR <10 and pt unresponsive Ondansetron HCl (Ondansetron 4 Mg/2 Ml Vial) 4 mg IV Q4H PRN PRN PRN Reason: NAUSEA Last Admin: 09/13/20 06:16 Dose: 4 mg Documented by: Prochlorperazine Edisylate (Prochlorperazine 10 Mg/2 Ml Vial) 10 mg IV Q6H PRN PRN PRN Reason: NAUSEA Sodium Chloride (0.9% Saline Lock 10 Ml Syringe) 10 - 40 ml IV X1 PRN PRN Reason: SALINE FLUSH Medical Necessity - Tobacco Use Smoking Status: Never smoker Assessment/Plan Patient seen and examined, currently pushing. Cervical exam 10/100/+2. Overall we will continue pushing and current management.
[2020-09-13] MEDS: Oxytocin 30 units/NS 500 ml 30 UNITS/500 ML IV.SOLN 334 UNITS IV (11:42)
--- NOTE | 2020-09-13 12:13 | OP.PCM_ITS ---
Vaginal Delivery Date of Procedure: 09/13/20 Pre-Operative Diagnosis: Term, maternal exhaustion Post-Operative Diagnosis: Term, maternal exhaustion Surgery/ Procedure Performed: Forceps Assisted Vaginal Delivery Type of Anesthesia: Epidural Description of Procedure: Procedure: Forceps assisted vaginal delivery Surgeon: Anthony Maldonado MD Anesthesia: Epidural EBL: 4 cc Complications: None Specimen: None Findings: Female in vertex position ALEJANDRA +2 station Apgars 8/9. Second- degree midline perineal laceration noted and the right sulcus tear. Consent: Patient arrived in labor complete dilation noted. Patient pushed for greater than 5 hours. Examined to be ALEJANDRA +2 station pelvis felt to be adequate and appropriate for vaginal delivery. Epidural anesthesia was adequate for pain relief. Discussed the patient's options of vacuum versus forceps versus section. Patient elects for forceps delivery. The process was explained to the patient. Patient stated understanding of the risks that include but are not limited to head injury and maternal tissue injury. Patient state understanding wish to proceed. All questions were answered. Procedure: Elkins catheter was present. [place] forceps were opened and lubricated. Vaginal exam reconfirmed ALEJANDRA position and +2 station. Phantom application forceps was performed in front of the perineum. The handle of the left branch was held in the left hand and the tip of the blade was gently introduced into the left side of the vagina with the right hand. In similar fashion, the right blade was placed into the right side of the vagina. Biparietal application was confirmed, and the 2 branches were locked with ease. Gentle traction in the axis of the pelvis was applied in coordination with uterine contractions maternal pushing effort. The handles of forceps were gradually elevated when the occiput is delivered onto the pubic symphysis. The forceps were then disarticulated and removed. The head and shoulders were delivered with ease. Placenta was delivered via cord traction and fundal massage. IV oxytocin was initiated to facilitate uterine contractions. The cervix and vaginal wall were thoroughly examined. Second-degree midline perineal laceration noted and repaired in typical fashion. Right sulcus tear noted, apex of sulcus tear was found using the assistance of retraction and suture was placed at the apex. [place] was reconfirmed after initial suture. The sulcus tear was closed in a continuous running lock fashion. Good hemostasis was noted. Rectal exam was performed and rectal mucosa and sphincter found to be intact. Good hemostasis was noted. Sulcus tear was reapproximated secondary perineal laceration hemostatic. Infant was examined after delivery and no visible lacerations or bruises were found.
--- NOTE | 2020-09-13 12:21 | DCINST_ITS ---
<Anthony Maldonado - Last Filed: 09/13/20 12:21> Discharge Diet: No Restrictions Discharge Activity: Return to Normal Activity, May Drive, May Shower May resume sexual activity in: 4-6 weeks Weight Bearing Status: Weight bearing as tolerated Call your doctor if your incision/area has: Continuous Slow Oozing, Foul Smelling Discharge Call your doctor if you observe: Fever of 101 or Higher, Shortness of breath, Chest pain Additional Instructions: If you experience any of the following, contact your healthcare provider. * Bleeding that soaks a pad every hour for 2 hours * Fever 100.4 or higher * Unrelieved incision or abdominal pain * Swelling, redness, discharge or bleeding from your incision or episiotomy site * Your incision begins to separate * Problems urinating (including inability to urinate or burning while urinating). * Visual changes * Severe headache * Flu-like symptoms * Pain or redness in one of both of your breasts * Pain, warmth, tenderness or swelling in your legs, especially the calf area * Frequent nausea and vomiting * Symptoms of depression or anxiety If you experience any of the following, call 911 or go to the nearest Emergency Room. * Chest pain * Problems breathing * Seizure activity * Partial or complete paralysis of a body part, slurred speech, weakness or drooping of the face, or a sudden inability to walk or hold your balance Allergies/Adverse Reactions: Allergies sulfamethoxazole [From Bactrim] Adverse Reaction (Verified 09/12/20 19:19) Other confusion trimethoprim [From Bactrim] Adverse Reaction (Verified 09/12/20 19:19) Other confusion Medications to take at Discharge Cholecalciferol (Vitamin D3) [Vitamin D3] 5,000 unit PO DAILY 09/04/17 Ferrous Sulfate [Iron] 325 mg PO DAILY 09/04/17 Hydroxychloroquine [Plaquenil] 200 mg PO BIDCM 09/04/17 Aspirin [Aspirin, Baby] 81 mg PO DAILY@0800 09/12/20 Docosahexanoic Acid [ Dha] 200 mg PO 09/12/20 Please Follow Up With: Anthony Maldonado MD When: 3 week telehealth visit, 6 week Primary Care Physician: Jose Luis Sanches MD [Primary Care Provider] - Test Results: Test results from this visit will be discussed in further detail at your follow- up appointment, if applicable. <Alda Maldonado - Last Filed: 09/15/20 10:57> Cleanse incision/area with: Soap & Water Additional Instructions: If you experience any of the following, contact your healthcare provider. * Bleeding that soaks a pad every hour for 2 hours * Fever 100.4 or higher * Unrelieved incision or abdominal pain * Swelling, redness, discharge or bleeding from your incision or episiotomy site * Your incision begins to separate * Problems urinating (including inability to urinate or burning while urinatin g). * Visual changes * Severe headache * Flu-like symptoms * Pain or redness in one of both of your breasts * Pain, warmth, tenderness or swelling in your legs, especially the calf area * Frequent nausea and vomiting * Symptoms of depression or anxiety If you experience any of the following, call 911 or go to the nearest Emergency Room. * Chest pain * Problems breathing * Seizure activity * Partial or complete paralysis of a body part, slurred speech, weakness or drooping of the face, or a sudden inability to walk or hold your balance Test Results: Test results from this visit will be discussed in further detail at your follow- up appointment, if applicable.
[2020-09-13] MEDS: Ibuprofen 600 MG Tablet PO ×2 (15:00→21:48)
[2020-09-13] MEDS: Acetaminophen 500 MG Tablet 1000 MG PO (15:54)
[2020-09-14] MEDS: Acetaminophen 500 MG Tablet 1000 MG PO ×3 (02:18→20:29)
[2020-09-14 05:00] VITALS: BP 110/76; PULSE 110; RESP 18; TEMP 36.8
[2020-09-14] MEDS: Ibuprofen 600 MG Tablet PO ×3 (05:09→17:33)
[2020-09-14 07:46] VITALS: BP 117/77; PULSE 108; RESP 18; TEMP 36.6; O2SAT 98
--- NOTE | 2020-09-14 08:21 | PCM.PN.OB ---
Subjective: day 1. Feeling well. Having some soreness in the perineal area. Breast-feeding is going well. Lochia minimal. - Physical Exam Vitals/I&O's: Vital Signs Temp Pulse Resp BP Pulse Ox 97.8 F 108 H 18 117/77 98 09/14/20 07:46 09/14/20 07:46 09/14/20 07:46 09/14/20 07:46 09/14/20 07:46 Oxygen Delivery Method Room Air Weight: 77.564 kg Body Mass Index (BMI) 31.2 Intake and Output for Last 24 Hours 09/12/20 09/13/20 09/14/20 23:59 23:59 23:59 Intake Total 680.83 / 680.83 3917.19 / 3917.19 Output Total 1500 / 1500 Balance 680.83 / 680.83 2417.19 / 2417.19 General: Alert, Oriented x3, No apparent distress HEENT: Atraumatic, Normocephalic Neck: Supple Lungs: Normal air movement Cardiovascular: Regular rate Abdomen: Bowel Sounds Present, Soft - Uterus 2 cm below umbilicus Extremities: No edema Neurological: Cranial nerves II-XII grossly intact Psych/Mental Status: Normal Affect, Appropriate Microbiology Past 72 Hours 09/12/20 20:20 Mucosa - Nose SARS-CoV-2 Antigen (Rapid) - Final Current Medications Acetaminophen (Acetaminophen 500 Mg Tablet) 1,000 mg PO Q8H PRN PRN PRN Reason: Pain Score 1-10 Last Admin: 09/14/20 02:18 Dose: 1,000 mg Documented by: Bisacodyl (Bisacodyl 10 Mg Suppository) 10 mg RC UD PRN PRN Reason: If no BM Dibucaine (Dibucaine 30 Gm Tube) 1 applic TOPICAL TID PRN PRN; Protocol PRN Reason: Discomfort Hydrocortisone (Hydrocortisone 2.5% Crm) 1 applic TOPICAL TID PRN PRN; Protocol PRN Reason: Discomfort Ibuprofen (Ibuprofen 600 Mg Tablet) 600 mg PO Q6H PRN PRN PRN Reason: Pain Score 1-10 Last Admin: 09/14/20 05:09 Dose: 600 mg Documented by: Ondansetron HCl (Ondansetron 4 Mg/2 Ml Vial) 4 mg IV Q4H PRN PRN PRN Reason: Nausea Senna/Docusate Sodium (Senna/Docusate Sodium 1 Tablet) 1 - 2 tablet PO DAILY PRN PRN PRN Reason: Constipation Simethicone (Simethicone 80 Mg Tablet) 80 mg PO PCHS PRN PRN Reason: Indigestion/Stomach pain Sodium Chloride (0.9% Saline Lock 10 Ml Syringe) 5 - 15 ml IV UD PRN PRN Reason: SALINE FLUSH Medical Necessity - Tobacco Use Smoking Status: Never smoker Assessment/Plan 34-year-old day 1 status post forceps assisted vaginal delivery. Breast-feeding. Home tomorrow.
[2020-09-14] MEDS: Senna/Docusate Sodium 1 Tablet PO (11:16)
[2020-09-14 11:18] VITALS: BP 119/68; PULSE 109; RESP 18; TEMP 36.6
[2020-09-14] MEDS: Hydrocortisone 2.5% Crm 1 APPLIC TOPICAL (12:22)
[2020-09-14] MEDS: Hydroxychloroquine 200 MG Tablet PO (16:24)
[2020-09-14 16:29] VITALS: BP 125/75; PULSE 116; RESP 16; TEMP 36.6; O2SAT 99
[2020-09-14 20:32] VITALS: BP 122/70; PULSE 94; RESP 16; TEMP 36.7; O2SAT 99
[2020-09-15] MEDS: Ibuprofen 600 MG Tablet PO ×2 (01:57→08:42)
[2020-09-15 01:59] VITALS: BP 107/64; PULSE 80; RESP 16; TEMP 36.7; O2SAT 95
[2020-09-15] MEDS: Acetaminophen 500 MG Tablet 1000 MG PO (07:08)
[2020-09-15 08:05] VITALS: BP 126/81; PULSE 111; RESP 16; TEMP 36.7
[2020-09-15] MEDS: Senna/Docusate Sodium 1 Tablet PO (08:41)
[2020-09-15] MEDS: Hydroxychloroquine 200 MG Tablet PO (08:41)
--- NOTE | 2020-09-15 10:55 | PN.OBGYN_ITS ---
Subjective: day 2. Reports some perineal soreness and discomfort. Reports hemorrhoids. Breast-feeding going well. Lochia minimal. - Physical Exam Vitals/I&O's: Vital Signs Temp Pulse Resp BP Pulse Ox 98.1 F 111 H 16 126/81 H 95 09/15/20 08:05 09/15/20 08:05 09/15/20 08:05 09/15/20 08:05 09/15/20 01:59 Oxygen Delivery Method Room Air Weight: 77.564 kg Body Mass Index (BMI) 31.2 Intake and Output for Last 24 Hours 09/13/20 09/14/20 09/15/20 23:59 23:59 23:59 Intake Total 3917.19 / 3917.19 Output Total 1500 / 1500 Balance 2417.19 / 2417.19 General: Alert, Oriented x3, No apparent distress HEENT: Atraumatic, Normocephalic Neck: Supple Lungs: Normal air movement Cardiovascular: Regular rate Abdomen: Soft - Uterus 2 cm below umbilicus. Extremities: No edema Neurological: Cranial nerves II-XII grossly intact Psych/Mental Status: Normal Affect, Appropriate Microbiology Past 72 Hours 09/12/20 20:20 Mucosa - Nose SARS-CoV-2 Antigen (Rapid) - Final Current Medications Acetaminophen (Acetaminophen 500 Mg Tablet) 1,000 mg PO Q8H PRN PRN PRN Reason: Pain Score 1-10 Last Admin: 09/15/20 07:08 Dose: 1,000 mg Documented by: Bisacodyl (Bisacodyl 10 Mg Suppository) 10 mg RC UD PRN PRN Reason: If no BM Dibucaine (Dibucaine 30 Gm Tube) 1 applic TOPICAL TID PRN PRN; Protocol PRN Reason: Discomfort Hydrocortisone (Hydrocortisone 2.5% Crm) 1 applic TOPICAL TID PRN PRN; Protocol PRN Reason: Discomfort Last Admin: 09/14/20 12:22 Dose: 1 applic Documented by: Hydroxychloroquine Sulfate (Hydroxychloroquine 200 Mg Tablet) 200 mg PO BIDCM THADDEUS Last Admin: 09/15/20 08:41 Dose: 200 mg Documented by: Ibuprofen (Ibuprofen 600 Mg Tablet) 600 mg PO Q6H PRN PRN PRN Reason: Pain Score 1-10 Last Admin: 09/15/20 08:42 Dose: 600 mg Documented by: Ondansetron HCl (Ondansetron 4 Mg/2 Ml Vial) 4 mg IV Q4H PRN PRN PRN Reason: Nausea Senna/Docusate Sodium (Senna/Docusate Sodium 1 Tablet) 1 - 2 tablet PO DAILY PRN PRN PRN Reason: Constipation Last Admin: 09/15/20 08:41 Dose: 1 tablet Documented by: Simethicone (Simethicone 80 Mg Tablet) 80 mg PO PCHS PRN PRN Reason: Indigestion/Stomach pain Sodium Chloride (0.9% Saline Lock 10 Ml Syringe) 5 - 15 ml IV UD PRN PRN Reason: SALINE FLUSH Medical Necessity - Tobacco Use Smoking Status: Never smoker Assessment/Plan 34-year-old day 2 status post forceps assisted vaginal delivery. Doing well having some perineal soreness and hemorrhoids. Supportive care discussed. Warning signs discussed. Breast-feeding. Reports that baby was fussy overnight and that food service attendant who saw the baby overnight wanted the food service attendant on-call today to take a look at the baby prior to discharge. Will likely discharge home this afternoon after pediatric evaluation.
[2020-09-15 15:00] VITALS: BP 119/81; PULSE 104; RESP 18; TEMP 37.1
== END 2020-09-15 16:25 | disposition home or self-care (01) | DRG 807 ==
LOC: WPOUT 19:24 → WP 19:24
PROVIDERS: Admitting Provider Obstetrics & Gynecology; PCP Family Medicine; Visit Provider Obstetrics & Gynecology
DX: O75.81 Maternal exhaustion complicating labor and delivery (principal); Z37.0 Single live birth; O70.1 Second degree perineal laceration during delivery; Z3A.40 40 weeks gestation of pregnancy; K64.9 Unspecified hemorrhoids
CPT/HCPCS: 59025; 59050; 85025; 86850; 86900; 86901; 87426; 99218; J7120; G0378; J2405

== ENCOUNTER → 2020-10-04 14:51 | Outpatient (CLI) | payer OTHER, SELFPAY ==
[2020-09-12 18:37] VITALS: BMI 31.2
== END ==
PROVIDERS: PCP Family Medicine; Visit Provider Obstetrics & Gynecology
DX: N39.0 Urinary tract infection, site not specified (principal)
CPT/HCPCS: 87086; 87088

== ENCOUNTER → 2021-01-03 | Outpatient (CLI) | payer OTHER, SELFPAY ==
[2020-09-12 18:37] VITALS: BMI 31.2
[2021-01-03 20:05] LABS: Probe Check PASS; Specimen Processing Control PASS
== END | disposition home or self-care (01) ==
PROVIDERS: PCP Family Medicine; Visit Provider Family Medicine
DX: Z20.822 Contact with and (suspected) exposure to COVID-19 (principal)
CPT/HCPCS: 87635; U0005; U0003

== ENCOUNTER → 2021-02-26 14:11 | Outpatient (CLI) | payer OTHER, SELFPAY ==
[2021-02-26 16:04] LABS: Creatinine, Urine (random) < 13.00 mg/dL (NO RANGE EST.); Protein, Urine (Random) < 6.0 mg/dL (<11.9)
== END ==
PROVIDERS: PCP Family Medicine; Visit Provider Internal Medicine Nephrology
DX: R80.9 Proteinuria, unspecified (principal)
CPT/HCPCS: 82570; 84156

== ENCOUNTER 2021-07-16 16:06 | Outpatient (CLI) | payer OTHER, SELFPAY ==
[2021-07-22 13:23] LABS: HPV APTIMA, High Risk Negative (Negative)
== END 2021-07-16 23:59 | disposition home or self-care (01) ==
LOC: LABSPEC 16:08
PROVIDERS: PCP Family Medicine; Visit Provider Obstetrics & Gynecology
DX: Z12.4 Encounter for screening for malignant neoplasm of cervix (principal)
CPT/HCPCS: 87624; 88175; G0145

== ENCOUNTER 2023-10-05 19:23 | Outpatient (CLI) | payer OTHER, SELFPAY | END 2023-10-05 23:59 | disposition home or self-care (01) | PROVIDERS: PCP Family Medicine; Referring Provider Otolaryngology; Visit Provider Otolaryngology | DX: J02.9 Acute pharyngitis, unspecified (principal) | CPT/HCPCS: 87070 ==

== ENCOUNTER → 2024-03-18 | Outpatient (CLI) | payer OTHER, SELFPAY ==
--- NOTE | 2024-03-18 08:57 | RAD_ITS ---
INDICATION: cough EXAMINATION/TECHNIQUE: X-RAY - XR Chest 2 Views COMPARISON: FINDINGS: LINES/DEVICES: None. LUNGS: No consolidation, edema or effusion. No pneumothorax. MEDIASTINUM AND CARDIOVASCULAR STRUCTURES: Cardiac silhouette not enlarged. Central airways and mediastinal contour are unremarkable. BONES AND SOFT TISSUES: Unremarkable. RAD/Chest PA and Lateral IMPRESSION: No radiographic evidence of acute cardiopulmonary disease. Electronically Signed: Chris Rodriguez DO at 16:35 EDT ,
== END | disposition home or self-care (01) ==
LOC: MTRAD 08:50
PROVIDERS: PCP Family Medicine; Referring Provider Family Medicine; Visit Provider Family Medicine
DX: R05.9 Cough, unspecified (principal)
CPT/HCPCS: 71046

== ENCOUNTER → 2024-06-23 | Outpatient (CLI) | payer OTHER, SELFPAY ==
--- NOTE | 2024-06-23 08:35 | RAD_ITS ---
EXAM: ESOPHAGUS DUAL CONTRAST CLINICAL HISTORY: Cough. Reflux. COMPARISON: None. TECHNIQUE: The patient ingested barium. Multiple images of the esophagus were obtained. FINDINGS: Esophagus is unremarkable. No evidence of gastroesophageal reflux. No evidence of obstruction. The patient ingested a 12 mm tablet the barium without any difficulty. RAD/Esophagus Dual Contrast IMPRESSION: Unremarkable air contrast esophagram. Reading Location: [place] [id number]
== END | disposition home or self-care (01) ==
PROVIDERS: PCP Family Medicine; Referring Provider Family Medicine; Visit Provider Family Medicine
DX: R05.9 Cough, unspecified (principal); K21.9 Gastro-esophageal reflux disease without esophagitis
CPT/HCPCS: 74221

== ENCOUNTER 2025-01-20 10:27 | Day surgery (SDC) | payer OTHER, SELFPAY ==
[2025-01-20] VITALS (8 sets, daily range): BP systolic 119–130; BP diastolic 75–87; PULSE 92–105; RESP 12–18; TEMP 36.4–36.8; O2SAT 99–100; BMI 31.6
--- NOTE | 2025-01-20 10:43 | PCM.PRE.AN2 ---
ASA Classification* ASA Classification ASA Classification: 2 Assessment & Plan Anesthesia* Anesthesia Assessment Anesthesia Assessment: Discussed sedation and/or anesthesia options, risks, benefits, and alternatives with patient/parents/legal guardian/POA. Questions invited. The patient/parents/legal guardian/POA seems to understand and agrees to proceed with anesthesia plan. Reviewed the physical assessment, medical history, allergy history and patient home medications list prior to surgery/procedure/anesthetic and documented any changes. Performed airway and anesthesia risk assessments. Anesthesia Type Anesthesia Type: MAC Anesthesia Focused Assessment* Airway Assessment Mouth opens: >3 cm Mallampati Score: III Labs Anesthesia Preop lab: CBC WBC 15.2 K/mm3 (4.4-11.0) H 09/12/20 19:10 09/12/20 RBC 5.03 M/mm3 (4.2-5.4) 09/12/20 19:10 09/12/20 Hgb 11.0 g/dL (12.0-15.0) L 09/12/20 19:10 09/12/20 Hct 34.6 % (37-47) L 09/12/20 19:10 09/12/20 Plt Count 246 K/mm3 (150-450) 09/12/20 19:10 09/12/20 CHEMISTRY Potassium 3.8 mmol/L (3.5-5.1) 08/14/20 15:45 08/14/20 Sodium 138 mmol/L (136-145) 08/14/20 15:45 08/14/20 BUN 8 mg/dL (7-18) 08/14/20 15:45 08/14/20 Creatinine 0.66 mg/dL (0.55-1.02) 08/14/20 15:45 08/14/20 Glucose 82 mg/dL (70-99) 12/15/24 07:38 12/15/24 TSH 1.78 uIU/mL (0.358-3.74) 01/31/20 11:33 01/31/20 COAG HCG, Quant 572 mIU/mL (1-3) H 01/04/20 16:19 01/04/20 Pre-Assessment Diagnosis/Proposed Procedure Planned Operative Procedure(s): egd Anesthesia History Anesthesia History - garde manger: Anesthesia History - garde manger Hx Hospitalization No 01/19/25 09:55 Any Problems With Anesthesia No 01/19/25 09:55 Cholinesterase deficiency No 01/19/25 09:55 You/Your Family Experience No 01/19/25 09:55 fever (hyperthermia) with Relationship Recent Exposure to Contagious Disease Does patient have nerve No 01/19/25 09:55 stimulator Patient instructed to have device shut off --Does patient have Pacemaker or ICD? When Was Last Pacemaker Check QUESTION #4 FULL TEXT: You/Your Family Experience fever (hyperthermia) with Anesthesia Last Oral Intake Last Oral intake: Last Oral Intake NPO since Meds taken in AM with sips of water? Meds patient instructed to take am of surgery PONV PONV - garde manger: PONV - garde manger Female Yes 01/19/25 09:55 HX of Motion Sickness Yes 01/19/25 09:55 HX of N/V After Surgery No 01/19/25 09:55 Non-Smoker Yes 01/19/25 09:55 Duration of Surgery greater No 01/19/25 09:55 than 60 minutes Number of Risk Factors 3 01/19/25 09:55 PONV Score Moderate Risk 01/19/25 09:55 Height & Weight Height & Weight: Anesthesia: Height & Weight Height 5 ft 2 in 09/12/20 19:43 Respiratory Assessment Respiratory Assessment - garde manger: Respiratory Tract Infection Hx - garde manger Hx Respiratory Tract Infection No 01/19/25 09:55 STOP Sleep Apnea STOP Sleep Apnea - garde manger: STOP Sleep Apnea - garde manger Hx Hypertension No 01/19/25 09:55 Hx Sleep Apnea No 01/19/25 09:55 CPAP BIPAP Do you snore loudly (louder No 01/19/25 09:55 than talking or can be heard Do you often feel tired/ No 01/19/25 09:55 fatigued/ sleepy during daytime? Has anyone observed you stop No 01/19/25 09:55 breathing during sleep? STOP Results Negative 01/19/25 09:55 QUESTION #5 FULL TEXT : Do you snore loudly (louder than talking or can be heard through closed doors)? Tobacco Use History Tobacco Use History - garde manger: Tobacco Use History - garde manger Tobacco Use Smoking Status Never smoker 01/19/25 09:55 Hx Tobacco Use No 01/19/25 09:55 Years Smoking Packs Smoked per Day Smoking Cessation Date was within the last 15 years Hx Smoking Cessation Date Hx Smoking Cessation Counseling Hematologic Medial History Hematologic Hx - garde manger: Hematologic Medical Hx - neonatal nurse Hx of Blood Transfusion No 01/19/25 09:55 Hx of Transfusion in last 3 No 01/19/25 09:55 Months Date of Last Transfusion (if within last 3 months) Ever experience any problems No 01/19/25 09:55 with transfusion(s)? Specify any problems Hx of Preganancy in last 3 No 01/19/25 09:55 Months Nurse Filling Out Transfusion JZOLLINGE 01/19/25 09:55 & Questions: Date: 01/19/25 01/19/25 09:55 Time: 09:56 01/19/25 09:55 Patient unable to answer at this time (ie. confused, unrespo /Reproduction History /Reproductive History - garde manger: /Reproductive Hx- garde manger Hx Now No 01/19/25 09:55 Gestational Age (in weeks): EDC: Hx Hx Para Hx Section SAB No 01/19/25 09:55 PFSH Medical History Wears glasses Non-smoker IBS (irritable bowel syndrome) Vitamin D deficiency Anemia Chronic UTI Migraines Vertigo Tachycardia Palpitations Anxiety Vocal cord dysfunction Cough Mixed connective tissue disease GERD (gastroesophageal reflux disease) RUQ pain Home Medications ?Medication ?Instructions ?Recorded ?Last Taken ?Type Cholecalciferol (Vitamin D3) 5,000 unit PO DAILY 09/04/17 Unknown History [Vitamin D3] hydroxychloroquine 200 mg tablet 200 mg PO BIDCM 09/04/17 Unknown History Saccharomyces boulardii 250 mg 250 mg PO BID 11/21/24 Unknown History capsule (Digest Probiotic (S.boulardii)) rimegepant 75 mg disintegrating 75 mg PO ONCE PRN migraine headache 11/21/24 Unknown History tablet (Nurtec ODT) vonoprazan 10 mg tablet (Voquezna) 10 mg PO QDAY 11/21/24 Unknown History Allergy/AdvReac Type Severity Reaction Status Date / Time sulfamethoxazole (From AdvReac Other Verified 01/19/25 09:45 Bactrim) trimethoprim (From Bactrim) AdvReac Other Verified 01/19/25 09:45 Family History Mother Arthritis Hypertension Social History Smoking Status: Never smoker alcohol intake: never substance use type: does not use Review of Systems (Anesthesia) ROS Narrative System reviewed and no additional complaints, except as documented.
[2025-01-20 11:02] LABS: Internal QC Validated? YES +Cl - CLEAR BKGD; Pregnancy, Urine Negative Negative
[2025-01-20 11:04] LABS: Record Kit Lot#,Urine Preg 962302
[2025-01-20] MEDS: Lactated Ringers 1,000 ML 15 ML IV (11:14)
--- NOTE | 2025-01-20 11:30 | EGD_PTH ---
PATIENT: TRINY FARIA LOC: EN U#:[id number] AGE/SX: 39/F ROOM: RE01/20/[address]: Dr. Akash Vazquez DO : 1985 BED: DIS: 01/20/2025 SPEC #: [id number] RECD: 01/20/25 12:42 STATUS: NIRAV AGUSTÍN #: [id number] SAMANTHA: 01/20/25 11:[address]: Akash Vazquez DEPT: SURGICAL PATHOLOGY RECD BY: Paolo Barrera ENTERED: 01/20/25 14:43 SP TYPE: EGD BIOPSY MARITO DR: Dr. Rao Sanches MD Tissues: A - Gastric mucous membrane B - Esophagus, NOS Procedures: Surgery Specimen Level IV HEADER OPERATION: EGD with biopsy PRE-OP DIAGNOSIS: Cough, GERD, globus sensation TISSUE SUBMITTED: A- Gastric antrum biopsy, B- Random esophagus biopsy MICROSCOPIC DIAGNOSIS A. Gastric antrum, biopsy: Oxyntic mucosa with features of reactive gastropathy. Negative for Helicobacter-like organisms (H&E). B. Esophagus, random biopsy: Squamous mucosa negative for eosinophils. MICROSCOPIC DESCRIPTION Slides are reviewed. GROSS DESCRIPTION A. Received in fixative is one container labeled with the patient's name and designated Gastric antrum biopsy. The specimen consists of multiple irregular fragments of light berman soft tissue that in aggregate measure 1 x 0.4 x 0.1 cm. The specimen is totally submitted in one cassette. B. Received in fixative is one container labeled with the patient's name and designated Random esophagus biopsy. The specimen consists of four irregular fragments of light berman soft tissue that measure <0.1 to 0.4 cm. The smallest fragment may not survive processing. The specimen is totally submitted in one cassette. [place] 01/20/2025 CPT:00434y2
--- NOTE | 2025-01-20 11:56 | HP.PCM_ITS ---
[facility] - General General Date of Admission: 01/20/25 Date of Service: 01/20/25 [facility] Narrative TRINY FARIA, is a 39 F who presents regarding concerns of acid reflux. She reports having a chronic cough for over a year and associated globus sensation with increased sinus drainage. She presented to her PCP and URI was ruled out. She reports that she had had dysphonia, but it has corrected. She had an esophagus dual contrast study May of this year that did not de monstrate gastroesophageal reflux, obstruction. She swallowed the 12mm tablet without any difficulty. She states that she has been hesitant about completing this GI consult due to fear of anesthesia and possible need for EGD to investigate her complaints. She denies burning sensation but does report a sore throat. She just completed a treatment of methylprednisolone for her TMJ. She had been on omeprazole for over a year, was switched to pantoprazole which was not effective. She has tried multiple OTC remedies, including: Tums, Rolaids, gaviscon, Pepto-Bismol, and Pepcid. She reports nothing has helped. Her PCP provided her with samples of vonoprazan 10mg and she reports complete resolution of all symptoms, she is requesting a prescription for this medication to continue. She denies difficulty chewing, nausea, emesis, abdominal bloating, pain, diarrhea, hematochezia, and melena. She reports constipation but with investigation, her BMs are tightly formed, firm, and requires some straining to pass, but has a complete BM daily. She reports having hemorrhoids only after delivering her first child, states she was pushing for 6 hours. [facility] Medical History Wears glasses Non-smoker IBS (irritable bowel syndrome) Vitamin D deficiency Anemia Chronic UTI Migraines Vertigo Tachycardia Palpitations Anxiety Vocal cord dysfunction Cough Mixed connective tissue disease GERD (gastroesophageal reflux disease) RUQ pain Home Medications ?Medication ?Instructions ?Recorded ?Last Taken ?Type Cholecalciferol (Vitamin D3) 5,000 unit PO DAILY 09/04 Unknown History [Vitamin D3] hydroxychloroquine 200 mg tablet 200 mg PO BIDCM 09/04 Unknown History Saccharomyces boulardii 250 mg 250 mg PO BID 11/21/24 Unknown History capsule (Digest Probiotic (S.boulardii)) rimegepant 75 mg disintegrating 75 mg PO ONCE PRN migr maile headache 11/21/24 Unknown History tablet (Nurtec ODT) vonoprazan 10 mg tablet (Voquezna) 10 mg PO QDAY 11/21 Unknown History Allergy/AdvReac Type Severity Reaction Status Date / Time sulfamethoxazole (From AdvReac Other Verified 01/20/25 11:04 Bactrim) trimethoprim (From Bactrim) AdvReac Other Verified 01/20/25 11:04 Family History Mother Arthritis Hypertension Social History Smoking Status: Never smoker alcohol intake: never substance use type: does not use ROS Constitutional Constitutional: Denies fatigue, fever(s), poor appetite, weight gain or weight loss Gastrointestinal Gastrointestinal: Denies belching, bloating, change in bowel habits, change in s tool character, chewing difficulty, coffee ground emesis, constipation, cramping, diarrhea, dyspepsia, dysphagia, early satiety, excessive flatus, fecal incontinence, heartburn, hematemesis, hematochezia, hemorrhoids, loose stools, melena, nausea, odynophagia, rectal bleeding, tenesmus, vomiting or weight changes Vital Signs Vital Signs Vital Signs: 01/20/25 11:05 01/20/25 11:05 Temperature 98.2 F Temperature Source Temporal Pulse Rate 105 H Respiratory Rate 14 Respiratory Pattern Normal Blood Pressure 130/87 H Blood Pressure Mean 101 Blood Pressure Source Monitor Blood Pressure Position Semi-Fowlers Blood Pressure Location Right Arm Pulse Ox 100 Oxygen Delivery Method Room Air Weight Weight: 173 lb 1.006 oz Body Mass Index (BMI) 31.6 Physical Exam Const alert, oriented x3, no apparent distress and healthy appearing General Appearance: cooperative GI normal to inspection, nondistended, normoactive bowel sounds, soft to palpation, non-tender and non-distended Percussion: normal to percussion Rectal Exam: deferred Results Lab / Micro Data Labs: Laboratory Results - last 24 hr 01/20/25 10:53: Urine Test Negative Assessment & Plan Assessment/Plan (1) Cough: QUALIFIERS: Cough type: chronic Qualified Code(s): R05.3 - Chronic cough (2) GERD (gastroesophageal reflux disease): QUALIFIERS: Esophagitis presence: esophagitis presence not specified Qualified Code(s): K21.9 - Gastro-esophageal reflux disease without esophagitis (3) Globus sensation: PLAN: Assessment and Plan Assessment and Plan (1) GERD (gastroesophageal reflux disease): Status: Chronic Qualifiers: Esophagitis presence: esophagitis presence not specified Qualified Code(s): K21.9 - Gastro-esophageal reflux disease without esophagitis (2) Cough: Status: Chronic Qualifiers: Cough type: chronic Qualified Code(s): R05.3 - Chronic cough (3) Globus sensation: Status: Chronic Medications: New vonoprazan 10 mg PO QDAY 30 tabs 5RF Rosalee CABRERAA GIANA, is a 38 F who presents to the office today for establishment with [facility] regarding concerns of acid reflux. She reports having a chronic cough for over a year and associated globus sensation with increased sinus drainage. Explained risks and benefits of endoscopic procedure and anesthesia. * she will consider EGD and call to schedule * vonoprazan 10mg PO daily due to failed polypharmacy * office FU
[2025-01-20] MEDS: Lactated Ringers 500 ML IV (12:21)
--- NOTE | 2025-01-20 12:31 | PCM.POST.ANE ---
Anesthesia: Postop Eval I Current Vital Signs Temperature: 98.2 F Pulse Rate: 104 Blood Pressure: 129/78 Respiratory Rate: 18 Pulse Ox: 100 Oxygen Delivery Method: Room Air Assessment Airway patent: Yes Spontaneous unlabored respirations: Yes Mental status: Calm nausea: No Vomiting: No Anesthesia Complication: No Fluid Hydration Crystalloid volume administer (ml): 500 Total IV fluid infused: 500 Progress Note Anesthesia document: Postop Eval 1 completed: Yes
--- NOTE | 2025-01-20 12:46 | OP.PROVAT_ITS ---
01/20/2025 Jose Luis Sanches [address] [place] [address] Re : Upper GI endoscopy procedure for Oanh Ernst Dear Dr. Sanches This procedure was performed on Monday, January 20, 2025. My impressions and recommendations are as follows: Impressions : - Normal esophagus. - Erythematous mucosa in the gastric body. Biopsied. - No gross lesions in the entire examined duodenum. - Biopsies were taken with a cold forceps for evaluation of eosinophilic esophagitis. Recommendations : - Discharge patient to home. - Resume previous diet. - Continue present medications. - Await pathology results. My findings are described in the full procedure note, which is enclosed. If I can be of further assistance, please feel free to contact me at . Sincerely, Akash Vazquez, 01/20/2025 12:45:41 PM This report has been signed electronically.
--- NOTE | 2025-01-20 12:46 | OP.EGD_ITS ---
Patient Name: Oanh Ernst Procedure Date: 01/20/2025 12:01 PM Date of : 1985 Age: 39 Procedure: Upper GI endoscopy Indications: Epigastric abdominal pain, Heartburn, Suspected reflux esophagitis Providers: Akash Vazquez DO Referring MD: Jose Luis Sanches Medicines: Propofol per Anesthesia Patient Profile: This is a 39 year old female. Refer to note in patient chart for documentation of history and physical. Patient has symptoms of acute epigastric abdominal pain, acute heartburn and chronic nausea. Complications: No immediate complications. Procedure: Pre-Anesthesia Assessment: - Prior to the procedure, a History and Physical was performed, and patient medications and allergies were reviewed. The patient is competent. The risks and benefits of the procedure and the sedation options and risks were discussed with the patient. All questions were answered and informed consent was obtained. Patient identification and proposed procedure were verified by the physician in the pre-procedure area. Mental Status Examination: alert and oriented. Airway Examination: normal oropharyngeal airway and neck mobility. Respiratory Examination: clear to auscultation. CV Examination: normal. Prophylactic Antibiotics: The patient does not require prophylactic antibiotics. Prior Anticoagulants: The patient has taken no anticoagulant or antiplatelet agents. ASA Grade Assessment: II - A patient with mild systemic disease. After reviewing the risks and benefits, the patient was deemed in satisfactory condition to undergo the procedure. The anesthesia plan was to use monitored anesthesia care (MAC). Immediately prior to administration of medications, the patient was re-assessed for adequacy to receive sedatives. The heart rate, respiratory rate, oxygen saturations, blood pressure, adequacy of pulmonary ventilation, and response to care were monitored throughout the procedure. The physical status of the patient was re-assessed after the procedure. After obtaining informed consent, the endoscope was passed under direct vision. Throughout the procedure, the patient's blood pressure, pulse, and oxygen saturations were monitored continuously. The Endoscope was introduced through the mouth, and advanced to the second part of duodenum. The upper GI endoscopy was accomplished without difficulty. Scope In: 12:20:16 PM Scope Out: 12:25:27 PM Total Procedure Duration Time 0 hours 5 minutes 11 seconds Findings: The examined esophagus was normal. Biopsies were obtained from the proximal and distal esophagus with cold forceps for histology of suspected eosinophilic esophagitis. Diffuse mildly erythematous mucosa without bleeding was found in the gastric body. Biopsies were taken with a cold forceps for histology. Verification of patient identification for the specimen was done. Estimated blood loss was minimal. No gross lesions were noted in the entire examined duodenum. Impression: - Normal esophagus. - Erythematous mucosa in the gastric body. Biopsied. - No gross lesions in the entire examined duodenum. - Biopsies were taken with a cold forceps for evaluation of eosinophilic esophagitis. Recommendation: - Discharge patient to home. - Resume previous diet. - Continue present medications. - Await pathology results. Procedure Code(s): --- Professional --- 74003, Esophagogastroduodenoscopy, flexible, transoral; with biopsy, single or multiple CPT copyright 2021 [employer]. All rights reserved. The codes documented in this report are preliminary and upon bodybuilder review may be revised to meet current compliance requirements. Akash Vazquez DO 01/20/2025 12:45:41 PM This report has been signed electronically. Number of Addenda: 0 Note Initiated On: 01/20/2025 12:01 PM
== END 2025-01-20 13:28 | disposition home or self-care (01) ==
LOC: EN 10:32 → AC 10:34
PROVIDERS: Anesthesiology; PCP Family Medicine; Referring Provider Family Medicine; Visit Provider Internal Medicine Gastroenterology
PROC: 0DJ08ZZ Inspection of Upper Intestinal Tract, Via Natural or Artificial Opening Endoscopic (ICD-10-PCS; CPT 43235; principal; 2025-01-20 11:25)
DX: K31.9 Disease of stomach and duodenum, unspecified (principal); R05.3 Chronic cough; K21.9 Gastro-esophageal reflux disease without esophagitis; F45.8 Other somatoform disorders
CPT/HCPCS: 43239; 81025; 88305